=== PATIENT | female | born 1985 | race Caucasian/White ===

== ENCOUNTER 2021-08-18 08:03 | Emergency (ER) | payer OTHER, SELFPAY ==
[2021-08-18 08:11] VITALS: BP 131/70; PULSE 84; RESP 16; TEMP 37.2; O2SAT 98
--- NOTE | 2021-08-18 08:13 | ED.NAVMDI ---
HPI - Nausea/Vomiting/Diarrhea General Chief complaint: Nausea/Vomiting/Diarrhea Stated complaint: nausea /blood in stool Time Seen by Provider: 08/18/21 08:03 Source: patient and RN notes reviewed History of Present Illness HPI Narrative: Patient is a 35-year-old female who presents the urgent care with complaints of 2 loose bright red stools this morning. Patient states that she woke up at 3 AM, vomited her bed, was nauseated and dry heaving. Patient states that she has nothing left in here now and believes it is from the [employer] she ate last night . Patient states that she has a history of internal hemorrhoids and she plans to call her doctor after she leaves our facility. Patient specifically states that she does not want to be evaluated in the ER and she just needs a work note . Patient has not taken anything [id number] for her symptoms. Patient currently denies any fever, chills, nausea, vomiting or abdominal pain. No other acute complaints. No acute distress noted. Patient aware of the plan of care. Some parts of this dictation were generated by voice recognition software and may contain typographical and/or grammatical inaccuracies. Related Data Home Medications Medication Instructions Recorded Confirmed No Home Medications 08/18/21 08/18/21 Allergies Allergy/AdvReac Type Severity Reaction Status Date / Time No Known Allergies Allergy Verified 08/18/21 08:14 Review of Systems Review of Systems: CONSTITUTIONAL: Denies fever, chills, or sweats. EYES: Denies visual changes, redness, or discharge. ENT: Denies rhinorrhea, congestion, sore throat, or otalgia. CARDIOVASCULAR: Denies chest pain, palpitations, or edema. RESPIRATORY: Denies cough or dyspnea. GASTROINTESTINAL: Reports of one episode of vomiting with 2 bright red stools GENITOURINARY: Denies dysuria or hematuria. SKIN: Denies rash or itching. MUSCULOSKELETAL: Denies back pain, joint pain, or myalgia. NEUROLOGIC: Denies headache, numbness, or weakness. All other systems reviewed are negative, except as documented in HPI. PMFSH Comments At the time of my signature, I reviewed and agree with the nursing past medical, surgical, social, and family history. There is no relevant family history pertinent to the patient complaint. Exam Narrative: GENERAL: This is a well-nourished, well-developed patient, in no apparent distress. HEAD: normocephalic, atraumatic. EYES: PERRL. Sclera clear/white. Vision is grossly intact. EARS: External ears normal NOSE: External nose normal with no obvious nasal discharge, nares without redness, no rhinorrhea. THROAT: Mucous membranes moist NECK: Neck supple CARDIOVASCULAR: Regular rate and rhythm without murmurs, gallops, or rubs. RESPIRATORY: Clear to auscultation. Breath sounds equal bilaterally. No wheezes, rales, or rhonchi. GASTROINTESTINAL: Abdomen soft, non-tender, nondistended. Bowel sounds are active. Deferred FOB/digital exam SKIN: warm, intact with no suspicious lesions or rash, good texture and turgor. NEURO: awake, alert, and oriented to person, place and time. There were no obvious focal neurologic abnormalities. EXTREMITIES: No clubbing, cyanosis, or edema. Course Course Level of Care: Express Care Visit Vital Signs Vital signs: Vital Signs Temperature 98.9 F 08/18/21 08:11 Pulse Rate 84 08/18/21 08:11 Respiratory Rate 16 08/18/21 08:11 Blood Pressure 131/70 08/18/21 08:11 Pulse Oximetry 98 08/18/21 08:11 Temperature 98.9 F 08/18/21 08:11 Pulse Rate 84 08/18/21 08:11 Respiratory Rate 16 08/18/21 08:11 Blood Pressure 131/70 08/18/21 08:11 Pulse Oximetry 98 08/18/21 08:11 Reviewed MDM - Nausea/Vomiting/Diarrhea MDM Narrative Medical decision making narrative: Considering there is no way for our facility to rule out GI bleed versus hemorrhoids, advised the patient to go to the emergency room. Patient states that she will speak to her doctor and sign out AGA
== END 2021-08-18 08:27 | disposition left against medical advice (07) ==
PROVIDERS: Emergency Provider Nurse Practitioner Family
DX: K92.1 Melena (principal)
CPT/HCPCS: 99211; G0463